=== PATIENT | female | born 1995 | race Caucasian/White ===

== ENCOUNTER 2018-05-13 11:01 | Day surgery (SDC) | payer OTHER ==
[~2018-05-13 11:01] MED LIST: LIDOCAINE 2% (SDV) 5 ML INJ
[2018-05-13] MEDS ORDERED: SOD CHLORIDE 0.9% 1,000 ML IV (11:30)
[2018-05-13] MEDS ORDERED: BUPIVACAINE 0.25% (MPF) 30 ML INJ (13:59)
[2018-05-13] MEDS ORDERED: hydrALAzine 20 MG INJ IV (14:00)
[2018-05-13] MEDS ORDERED: DIPHENHYDRAMINE 50 MG INJ IV (14:00)
[2018-05-13] MEDS ORDERED: EPHEDrine SULFATE 50 MG/5 ML SYG IV (14:00)
[2018-05-13] MEDS ORDERED: HYDROmorphONE 1 MG/5 ML IV SYRINGE IV (14:00)
[2018-05-13] MEDS ORDERED: ALBUTEROL 0.083% (NEB) 2.5 MG/3 ML AMP HHN (14:00)
[2018-05-13] MEDS ORDERED: FENTAnyl 50 MCG/ML VIAL IV (14:00)
[2018-05-13] MEDS ORDERED: LABETALOL HCL 20MG INJ IV (14:00)
[2018-05-13] MEDS ORDERED: OXYCODONE/ACETAMINOPHEN (5/325) TAB PO (14:00)
[2018-05-13] MEDS ORDERED: MIDAZOLAM 1 MG/ML 2 ML INJ IV (14:00)
[2018-05-13] MEDS ORDERED: ACETAMINOPHEN 1000MG/100ML IV 100 ML (14:02)
[2018-05-13] MEDS ORDERED: FENTAnyl 50 MCG/ML VIAL (14:05)
[2018-05-13] MEDS ORDERED: MIDAZOLAM 1 MG/ML 2 ML INJ (14:06)
[2018-05-13] MEDS: CEFAZOLIN 2 GM/50 ML (PMX) 50 ML IVPB (14:10)
[2018-05-13] MEDS ORDERED: DEXAMETHASONE 4 MG/ML 1 ML INJ (14:20)
[2018-05-13] MEDS ORDERED: ROCURONIUM 50 MG INJ (14:20)
[2018-05-13] MEDS ORDERED: CEFAZOLIN 1 GM INJ (14:20)
[2018-05-13] MEDS ORDERED: PROPOFOL 100 ML (14:20)
[2018-05-13] MEDS ORDERED: ONDANSETRON 4 MG INJ (14:21)
[2018-05-13] MEDS: BUPIVACAINE 0.25% (MPF) 30 ML INJ INJ ×2 (14:23)
[2018-05-13] MEDS ORDERED: SUGAMMADEX SODIUM 200 MG/2 ML VIAL IV (14:39)
[2018-05-13] MEDS ORDERED: HYDROCODONE/APAP (5/325) TAB PO (15:00)
[2018-05-13] MEDS: HYDROmorphONE 1 MG/5 ML IV SYRINGE IV ×2 (15:22→15:32)
[2018-05-13] MEDS: METOCLOPRAMIDE 10 MG INJ IV (15:23)
[2018-05-13] MEDS: MEPERIDINE 25 MG INJ IV (15:26)
[2018-05-13] MEDS: ONDANSETRON 4 MG INJ IV (15:26)
[2018-05-13] MEDS: FENTAnyl 50 MCG/ML VIAL IV ×2 (15:27→15:33)
[2018-05-13] MEDS: OXYCODONE/ACETAMINOPHEN (5/325) TAB PO (16:31)
== END 2018-05-13 16:40 | disposition home or self-care (01) ==
LOC: SDS 11:01
DX: K80.10 Calculus of gallbladder with chronic cholecystitis without obstruction (principal)
CPT/HCPCS: 47562; 84703; 88304